=== PATIENT | female | born 1965 | race Caucasian/White ===

== ENCOUNTER 2022-11-13 13:38 | Inpatient (IN) | payer OTHER ==
[2022-11-13] MEDS ORDERED: SODIUM CHLORIDE 0.9% 500 ML INFUS.BAG IV ONE ×2 (15:20→17:19)
[2022-11-13] MEDS ORDERED: ONDANSETRON 4 MG/2 ML VIAL IVPUSH ONE ×3 (15:20→20:22)
[2022-11-13] MEDS ORDERED: PANTOPRAZOLE SODIUM 40 MG VIAL IVPUSH ONE (15:24)
[2022-11-13] MEDS ORDERED: ONDANSETRON 4 MG/2 ML VIAL ONE ×3 (15:27→20:29)
[2022-11-13] MEDS ORDERED: PANTOPRAZOLE SODIUM 40 MG VIAL ONE (15:57)
[2022-11-13 16:21] LABS: BASO % 0.5 % (0-2.0); EOS % 1.2 % (0-4.5); HEMATOCRIT 36.6 % (32.4-45.2); HEMOGLOBIN 12.6 GM/dL (10.7-15.3); LYMPH % 18.3 % (8-40); MCH 31.1 pg (25.7-33.7); MCHC 34.4 g/dl (32.0-36.0); MEAN CELL VOLUME 90.4 fl (80-96); MEAN PLT VOLUME 8.1 fl (7.5-11.1); MONO % 5.2 % (3.8-10.2); NEUT % 74.8 % (42.8-82.8); PLATELET COUNT 289 10^3/uL (134-434); RBC 4.05 M/mm3 (3.60-5.2); RDW 13.4 % (11.6-15.6); WHITE BLOOD COUNT 10.3 K/mm3 (4.0-10.0)
[2022-11-13 16:26] LABS: CHLORIDE 106 mmol/L (98-107); SODIUM 143 mmol/L (136-145)
[2022-11-13 16:27] LABS: CALCIUM 8.6 mg/dL (8.5-10.1)
[2022-11-13 16:28] LABS: ALBUMIN 3.4 g/dl (3.4-5.0); ANION GAP 8 MMOL/L (8-16); BLOOD UREA NITROGEN 10.9 mg/dL (7-18); CO2 29 mmol/L (21-32); GLUCOSE,RANDOM 152 mg/dL (74-106); LIPASE 100 U/L (73-393)
[2022-11-13 16:30] LABS: CREATININE 0.8 mg/dL (0.55-1.3)
[2022-11-13] MEDS ORDERED: POTASSIUM CHLORIDE ORAL LIQUID 20 MEQ/15 ML PO ONE (16:30)
[2022-11-13 16:32] LABS: BILIRUBIN,TOTAL 0.5 mg/dL (0.2-1); SGOT/AST 26 U/L (15-37); SGPT/ALT 28 U/L (13-61); TOT PROT 6.8 g/dl (6.4-8.2)
[2022-11-13 16:33] LABS: ALK PHOS 88 U/L (45-117)
[2022-11-13] MEDS ORDERED: ACETAMINOPHEN 1000 MG/100 ML BAG IVPB ONE (17:14)
[2022-11-13] MEDS ORDERED: ACETAMINOPHEN INJECTION 100 ML IVPB ONE (17:18)
[2022-11-13] MEDS ORDERED: SODIUM CHLORIDE 1,000 ML IV STA (17:19)
[2022-11-13] MEDS ORDERED: KCL 10 MEQ IVPB 10 MEQ/100 ML INFUS.BAG IVPB ONE (17:21)
[2022-11-13] MEDS ORDERED: KCL 10 MEQ IVPB 10 MEQ/100 ML INFUS.BAG IVPB SCH (17:45)
[2022-11-13] MEDS ORDERED: MAG HYDROX/AL HYDROX/SIMETH 30 ML UNIT-DOSE CUP PO ONE (18:37)
[2022-11-13] MEDS ORDERED: MAG HYDROX/AL HYDROX/SIMETH 30 ML UNIT-DOSE CUP ONE (19:13)
[2022-11-13 20:37] LABS: MAGNESIUM < 0.3 mg/dL (1.8-2.4)
[2022-11-13 20:41] LABS: PHOSPHOROUS 2.9 mg/dL (2.5-4.9)
[2022-11-13] MEDS ORDERED: SODIUM CHLORIDE 1,000 ML IV SCH (21:00)
[2022-11-13] MEDS ORDERED: MAGNESIUM SULFATE IN WATER 2 GM/50 ML IVPB IVPB ONE (21:09)
[2022-11-13] MEDS ORDERED: MAGNESIUM SULF 50% (8.12 MEQ/2 ML-1 GM VIAL) IVPB ONE (21:09)
[2022-11-13 23:21] LABS: EPI CELLS >36 /uL (0-25.1); HYALINE CASTS 4 /uL (0-3.1); URINE APPEARANCE CLEAR; URINE BACTERIA 710 /uL (0-1359); URINE BILIRUBIN NEGATIVE (NEGATIVE); URINE COLOR YELLOW; URINE GLUCOSE (UA) NEGATIVE (NEGATIVE); URINE KETONE NEGATIVE (NEGATIVE); URINE LEUK ESTERASE TRACE (NEGATIVE); URINE NITRITE NEGATIVE (NEGATIVE); URINE PROTEIN NEGATIVE (NEGATIVE); URINE RBC 10 /uL (0-23.9); URINE WBC 23 /uL (0-25.8)
[2022-11-13 23:30] LABS: PHENCYCLIDINE,URINE NEGATIVE (NEGATIVE); URINE BENZODIAZEPINES NEGATIVE (NEGATIVE)
[2022-11-13 23:31] LABS: METHADONE, UR NEGATIVE (NEGATIVE); OPIATES, URI NEGATIVE (NEGATIVE)
[2022-11-13 23:40] LABS: COCAINE, UR NEGATIVE (NEGATIVE); URINE AMPHETAMINES NEGATIVE (NEGATIVE); URINE BARBITURATES NEGATIVE (NEGATIVE)
[2022-11-14 01:39] LABS: BASO % 1.2 % (0-2.0); EOS % 2.3 % (0-4.5); LYMPH % 33.6 % (8-40); MCH 31.4 pg (25.7-33.7); MCHC 34.5 g/dl (32.0-36.0); MEAN CELL VOLUME 91.1 fl (80-96); MEAN PLT VOLUME 8.1 fl (7.5-11.1); MONO % 7.2 % (3.8-10.2); NEUT % 55.7 % (42.8-82.8); PLATELET COUNT 256 10^3/uL (134-434); RBC 3.51 M/mm3 (3.60-5.2); RDW 13.6 % (11.6-15.6); WHITE BLOOD COUNT 8.8 K/mm3 (4.0-10.0)
[2022-11-14 07:56] LABS: CHLORIDE 108 mmol/L (98-107); SODIUM 143 mmol/L (136-145)
[2022-11-14 07:57] LABS: BASO % 0.6 % (0-2.0); EOS % 2.6 % (0-4.5); HEMATOCRIT 32.2 % (32.4-45.2); LYMPH % 33.8 % (8-40); MCH 31.4 pg (25.7-33.7); MCHC 34.2 g/dl (32.0-36.0); MEAN CELL VOLUME 91.8 fl (80-96); MEAN PLT VOLUME 8.5 fl (7.5-11.1); MONO % 6.5 % (3.8-10.2); NEUT % 56.5 % (42.8-82.8); PLATELET COUNT 259 10^3/uL (134-434); RBC 3.51 M/mm3 (3.60-5.2); RDW 13.6 % (11.6-15.6); WHITE BLOOD COUNT 7.6 K/mm3 (4.0-10.0)
[2022-11-14 08:00] LABS: ANION GAP 8 MMOL/L (8-16); BLOOD UREA NITROGEN 7.5 mg/dL (7-18); CO2 28 mmol/L (21-32); GLUCOSE,RANDOM 108 mg/dL (74-106)
[2022-11-14 08:01] LABS: CALCIUM 7.4 mg/dL (8.5-10.1)
[2022-11-14 08:03] LABS: CHOLESTEROL 162 mg/dL (50-200); CREATININE 0.7 mg/dL (0.55-1.3); PHOSPHOROUS 2.5 mg/dL (2.5-4.9); SGOT/AST 18 U/L (15-37); SGPT/ALT 23 U/L (13-61)
[2022-11-14 08:04] LABS: BILIRUBIN,TOTAL 0.6 mg/dL (0.2-1); LDL CHOLESTEROL (ONLY SJRH) 99 mg/dL (5-100); TOT PROT 5.8 g/dl (6.4-8.2); TRIGLYCERIDES 169 mg/dL (0-150)
[2022-11-14 08:05] LABS: HDL CHOLESTEROL 38 mg/dL (40-60)
[2022-11-14 08:06] LABS: ALK PHOS 78 U/L (45-117)
[2022-11-14] MEDS ORDERED: LEVOTHYROXINE NA 50 MCG TABLET (FP) ONE (08:21)
[2022-11-14] MEDS ORDERED: LEVOTHYROXINE NA 75 MCG TABLET (FP) ONE (08:21)
[2022-11-14] MEDS: LEVOTHYROXINE 150 MCG, LEVOTHYROXINE 25 MCG PO SCH (08:26)
[2022-11-14 08:45] LABS: MAGNESIUM 0.7 mg/dL (1.8-2.4)
[2022-11-14] MEDS ORDERED: MAGNESIUM SULF 50% (8.12 MEQ/2 ML-1 GM VIAL) IVPB ONE (09:24)
[2022-11-14] MEDS ORDERED: MAGNESIUM SULFATE IN WATER 2 GM/50 ML IVPB IVPB ONE ×3 (09:29→16:25)
[2022-11-14] MEDS ORDERED: metoPROLOL SUCCINATE 25 MG TAB.SR.24H (FP) PO ONE (09:45)
[2022-11-14] MEDS ORDERED: ENOXAPARIN NA (PORCINE) 40 MG/0.4 ML DISP.SYRIN SQ ONE (09:46)
[2022-11-14] MEDS ORDERED: PANTOPRAZOLE SODIUM 40 MG VIAL ONE (09:46)
[2022-11-14] MEDS ORDERED: PANTOPRAZOLE SODIUM 40 MG VIAL IVPUSH SCH (10:00)
[2022-11-14] MEDS ORDERED: LEVOTHYROXINE NA 200 MCG TABLET PO SCH (10:00)
[2022-11-14] MEDS: ENOXAPARIN NA (PORCINE) 40 MG/0.4 ML DISP.SYRIN SQ SCH (10:14)
[2022-11-14] MEDS: metoPROLOL SUCCINATE 25 MG TAB.SR.24H (FP) PO SCH (10:14)
[2022-11-14] MEDS ORDERED: CALCIUM GLUCONATE 10% - 1,000 MG/10 ML VIAL ONE (10:19)
[2022-11-14] MEDS ORDERED: CALCIUM GLUCONATE 10% - 1,000 MG/10 ML VIAL IVPUSH ONE (10:30)
[2022-11-14] MEDS: FAMOTIDINE 20 MG/50 ML IVPB 20 MG/50 ML MG IVPB SCH ×2 (11:04→22:30)
[2022-11-14] MEDS: SODIUM CHLORIDE 0.45% 1,000 ML IV SCH (11:26)
[2022-11-14] MEDS: MAGNESIUM 2GM/50ML STERILE WATER IVPB IVPB SCH ×3 (11:27→17:00)
[2022-11-14] MEDS ORDERED: POTASSIUM CHLORIDE TABS 20 MEQ TABLET.ER (FP) PO ONE ×2 (17:35→18:00)
[2022-11-14] MEDS ORDERED: ACETAMINOPHEN 1000 MG/100 ML BAG IVPB PRN (21:55)
[2022-11-14] MEDS ORDERED: FAMOTIDINE 20 MG/50 ML IVPB 20 MG/50 ML MG IVPB ONE (22:23)
[2022-11-14] MEDS ORDERED: ACETAMINOPHEN 325 MG TABLET (FP) ONE (22:23)
[2022-11-15 07:19] LABS: BASO % 0.5 % (0-2.0); EOS % 2.6 % (0-4.5); HEMATOCRIT 32.2 % (32.4-45.2); HEMOGLOBIN 11.1 GM/dL (10.7-15.3); LYMPH % 27.4 % (8-40); MCH 31.4 pg (25.7-33.7); MCHC 34.3 g/dl (32.0-36.0); MEAN CELL VOLUME 91.7 fl (80-96); MEAN PLT VOLUME 8.3 fl (7.5-11.1); MONO % 6.2 % (3.8-10.2); NEUT % 63.3 % (42.8-82.8); PLATELET COUNT 242 10^3/uL (134-434); RBC 3.51 M/mm3 (3.60-5.2); RDW 13.4 % (11.6-15.6)
[2022-11-15 07:53] LABS: CALCIUM 7.8 mg/dL (8.5-10.1)
[2022-11-15 07:54] LABS: ALBUMIN 3.2 g/dl (3.4-5.0); BLOOD UREA NITROGEN 6.3 mg/dL (7-18); MAGNESIUM 2.3 mg/dL (1.8-2.4)
[2022-11-15 07:57] LABS: CREATININE 0.7 mg/dL (0.55-1.3); PHOSPHOROUS 2.1 mg/dL (2.5-4.9)
[2022-11-15 07:58] LABS: BILIRUBIN,TOTAL 0.6 mg/dL (0.2-1)
[2022-11-15] MEDS ORDERED: metoPROLOL SUCCINATE 25 MG TAB.SR.24H (FP) PO ONE (09:44)
[2022-11-15] MEDS ORDERED: LEVOTHYROXINE NA 75 MCG TABLET (FP) ONE (09:44)
[2022-11-15] MEDS ORDERED: LEVOTHYROXINE NA 50 MCG TABLET (FP) ONE (09:45)
[2022-11-15] MEDS ORDERED: ENOXAPARIN NA (PORCINE) 40 MG/0.4 ML DISP.SYRIN SQ ONE (09:45)
[2022-11-15] MEDS ORDERED: FAMOTIDINE 20 MG/50 ML IVPB 20 MG/50 ML MG IVPB ONE (09:45)
[2022-11-15] MEDS ORDERED: POTASSIUM CHLORIDE TABS 20 MEQ TABLET.ER (FP) PO ONE (11:27)
[2022-11-15] MEDS: LEVOTHYROXINE 150 MCG, LEVOTHYROXINE 25 MCG PO SCH (11:51)
[2022-11-15] MEDS: FAMOTIDINE 20 MG/50 ML IVPB 20 MG/50 ML MG IVPB SCH ×2 (11:51→21:47)
[2022-11-15] MEDS: metoPROLOL SUCCINATE 25 MG TAB.SR.24H (FP) PO SCH (11:51)
[2022-11-15] MEDS: ENOXAPARIN NA (PORCINE) 40 MG/0.4 ML DISP.SYRIN SQ SCH (11:51)
[2022-11-15] MEDS: SODIUM CHLORIDE 0.45% 1,000 ML IV SCH (11:52)
[2022-11-15] MEDS: POTASSIUM CHLORIDE TABS 20 MEQ TABLET.ER (FP) PO SCH (11:52)
[2022-11-15] MEDS: ATORVASTATIN CA 80 MG TABLET (FP) PO SCH (21:46)
[2022-11-15 23:48] VITALS: BMI 38.4
[2022-11-16] MEDS: LEVOTHYROXINE 100 MCG, LEVOTHYROXINE 75 MCG PO SCH (06:15)
[2022-11-16] MEDS: FAMOTIDINE 20 MG/50 ML IVPB 20 MG/50 ML MG IVPB SCH (09:56)
[2022-11-16] MEDS: POTASSIUM CHLORIDE TABS 20 MEQ TABLET.ER (FP) PO SCH (09:57)
[2022-11-16] MEDS: ASPIRIN 81 MG CHEWABLE TABLETS PO SCH (09:57)
[2022-11-16] MEDS: ENOXAPARIN NA (PORCINE) 40 MG/0.4 ML DISP.SYRIN SQ SCH (09:57)
[2022-11-16] MEDS: metoPROLOL SUCCINATE 25 MG TAB.SR.24H (FP) PO SCH (09:58)
[2022-11-16 10:15] LABS: HEMATOCRIT 32.5 % (32.4-45.2); MCH 31.2 pg (25.7-33.7); MCHC 33.9 g/dl (32.0-36.0); MEAN CELL VOLUME 92.2 fl (80-96); MEAN PLT VOLUME 8.2 fl (7.5-11.1); PLATELET COUNT 251 10^3/uL (134-434); RBC 3.53 M/mm3 (3.60-5.2); RDW 13.6 % (11.6-15.6)
[2022-11-16 10:39] LABS: CALCIUM 7.9 mg/dL (8.5-10.1)
[2022-11-16 10:40] LABS: ALBUMIN 3.1 g/dl (3.4-5.0); BLOOD UREA NITROGEN 8.3 mg/dL (7-18)
[2022-11-16 10:43] LABS: CREATININE 0.7 mg/dL (0.55-1.3); PHOSPHOROUS 1.3 mg/dL (2.5-4.9)
[2022-11-16 10:44] LABS: TOT PROT 6.2 g/dl (6.4-8.2)
[2022-11-16 10:46] LABS: BILIRUBIN,TOTAL 0.4 mg/dL (0.2-1)
[2022-11-16] MEDS ORDERED: SODIUM CHLORIDE 0.9% 500 ML INFUS.BAG IV ONE (10:49)
[2022-11-16] MEDS: SODIUM CHLORIDE 0.45% 1,000 ML IV SCH (11:45)
[2022-11-16] MEDS: NAPH,MB-DB/K PH,MBDB POWDER PACKET PO SCH ×2 (13:07→21:10)
[2022-11-16] MEDS ORDERED: NAPH,MB-DB/K PH,MBDB POWDER PACKET PO SCH (14:00)
[2022-11-16] MEDS ORDERED: REGADENOSON 0.4 MG/5 ML PRE-FILLED SYRINGE IVPUSH ONE ×2 (14:16→14:45)
[2022-11-16] MEDS ORDERED: MAG HYDROX/AL HYDROX/SIMETH 30 ML UNIT-DOSE CUP PO PRN (17:36)
[2022-11-16] MEDS ORDERED: ALBUTEROL SO4 HFA INHALER IH PRN ×2 (18:38→18:41)
[2022-11-16] MEDS: AMITRIPTYLINE HCL 75 MG TABLET PO SCH (21:10)
[2022-11-16] MEDS: ATORVASTATIN CA 80 MG TABLET (FP) PO SCH (21:10)
[2022-11-17] MEDS: LEVOTHYROXINE 100 MCG, LEVOTHYROXINE 75 MCG PO SCH (06:42)
[2022-11-17 07:49] LABS: BASO % 0.7 % (0-2.0); EOS % 4.3 % (0-4.5); HEMATOCRIT 34.3 % (32.4-45.2); HEMOGLOBIN 11.8 GM/dL (10.7-15.3); MCH 31.5 pg (25.7-33.7); MCHC 34.5 g/dl (32.0-36.0); MEAN CELL VOLUME 91.3 fl (80-96); MEAN PLT VOLUME 8.3 fl (7.5-11.1); MONO % 7.1 % (3.8-10.2); NEUT % 55.9 % (42.8-82.8); PLATELET COUNT 273 10^3/uL (134-434); RBC 3.76 M/mm3 (3.60-5.2); RDW 13.4 % (11.6-15.6); WHITE BLOOD COUNT 6.7 K/mm3 (4.0-10.0)
[2022-11-17 08:24] LABS: ALBUMIN 3.2 g/dl (3.4-5.0); CALCIUM 8.9 mg/dL (8.5-10.1)
[2022-11-17 08:25] LABS: BLOOD UREA NITROGEN 10.4 mg/dL (7-18); MAGNESIUM 1.7 mg/dL (1.8-2.4)
[2022-11-17 08:26] LABS: CREATININE 0.6 mg/dL (0.55-1.3)
[2022-11-17 08:28] LABS: BILIRUBIN,TOTAL 0.5 mg/dL (0.2-1); TOT PROT 6.5 g/dl (6.4-8.2)
[2022-11-17] MEDS: FAMOTIDINE 20 MG TABLET PO SCH (10:14)
[2022-11-17] MEDS: ASPIRIN 81 MG CHEWABLE TABLETS PO SCH (10:14)
[2022-11-17] MEDS: POTASSIUM CHLORIDE TABS 20 MEQ TABLET.ER (FP) PO SCH (10:15)
[2022-11-17] MEDS: metoPROLOL SUCCINATE 25 MG TAB.SR.24H (FP) PO SCH (10:15)
[2022-11-17] MEDS: ENOXAPARIN NA (PORCINE) 40 MG/0.4 ML DISP.SYRIN SQ SCH (10:16)
[2022-11-17] MEDS: CHOLECALCIFEROL (VIT D3) 1,000 UNIT (25 MCG) TABLET PO SCH (10:18)
[2022-11-17] MEDS ORDERED: MAGNESIUM SULF 50% (8.12 MEQ/2 ML-1 GM VIAL) IVPB ONE ×3 (10:55→13:30)
[2022-11-17] MEDS ORDERED: MAG HYDROX/AL HYDROX/SIMETH 30 ML UNIT-DOSE CUP PO ONE (18:16)
[2022-11-17] MEDS: NAPH,MB-DB/K PH,MBDB POWDER PACKET PO SCH ×3 (19:25→21:16)
[2022-11-17] MEDS ORDERED: SUCRALFATE 1 GM/10 ML UNIT DOSE CUPS PO SCH (20:50)
[2022-11-17] MEDS: ONDANSETRON 4 MG/2 ML VIAL IVPUSH PRN (21:01)
[2022-11-17] MEDS: AMITRIPTYLINE HCL 75 MG TABLET PO SCH (21:15)
[2022-11-17] MEDS: ATORVASTATIN CA 80 MG TABLET (FP) PO SCH (21:15)
[2022-11-17] MEDS ORDERED: SUCRALFATE 1 GM TABLET (FP) PO SCH (22:00)
[2022-11-17] MEDS ORDERED: PROCHLORPERAZINE INJECTION 10 MG/2 ML VIAL IVPB ONE (23:13)
[2022-11-17] MEDS ORDERED: PROCHLORPERAZINE INJECTION 10 MG/2 ML VIAL IM ONE (23:24)
[2022-11-17] MEDS: SUCRALFATE 1 GM TABLET (FP) PO SCH (23:26)
[2022-11-17] MEDS ORDERED: FAMOTIDINE 20 MG/50 ML IVPB 20 MG/50 ML MG IVPB ONE (23:43)
[2022-11-18] MEDS: LEVOTHYROXINE 100 MCG, LEVOTHYROXINE 75 MCG PO SCH (06:16)
[2022-11-18] MEDS: NAPH,MB-DB/K PH,MBDB POWDER PACKET PO SCH ×2 (06:20→16:45)
[2022-11-18 07:30] LABS: HEMATOCRIT 37.2 % (32.4-45.2); HEMOGLOBIN 12.9 GM/dL (10.7-15.3); MCH 31.5 pg (25.7-33.7); MCHC 34.5 g/dl (32.0-36.0); MEAN CELL VOLUME 91.3 fl (80-96); MEAN PLT VOLUME 8.1 fl (7.5-11.1); PLATELET COUNT 314 10^3/uL (134-434); RBC 4.08 M/mm3 (3.60-5.2); RDW 13.8 % (11.6-15.6); WHITE BLOOD COUNT 8.6 K/mm3 (4.0-10.0)
[2022-11-18 07:57] LABS: BLOOD UREA NITROGEN 16.2 mg/dL (7-18); CALCIUM 9.7 mg/dL (8.5-10.1)
[2022-11-18] MEDS ORDERED: SUCRALFATE 1 GM TABLET (FP) PO SCH (08:00)
[2022-11-18 08:01] LABS: CREATININE 0.7 mg/dL (0.55-1.3)
[2022-11-18] MEDS: ASPIRIN 81 MG CHEWABLE TABLETS PO SCH (10:23)
[2022-11-18] MEDS: SUCRALFATE 1 GM TABLET (FP) PO SCH ×4 (10:23→20:22)
[2022-11-18] MEDS: metoPROLOL SUCCINATE 25 MG TAB.SR.24H (FP) PO SCH (10:24)
[2022-11-18] MEDS: ENOXAPARIN NA (PORCINE) 40 MG/0.4 ML DISP.SYRIN SQ SCH (10:24)
[2022-11-18] MEDS: FAMOTIDINE 20 MG TABLET PO SCH (10:24)
[2022-11-18] MEDS: CHOLECALCIFEROL (VIT D3) 1,000 UNIT (25 MCG) TABLET PO SCH (10:25)
[2022-11-18] MEDS: ONDANSETRON 4 MG/2 ML VIAL IVPUSH PRN (10:25)
[2022-11-18] MEDS: POTASSIUM CHLORIDE TABS 20 MEQ TABLET.ER (FP) PO SCH (19:52)
[2022-11-18 20:41] VITALS: BP 136/85; PULSE 82; RESP 18; TEMP 98.1
== END 2022-11-18 20:46 | disposition short-term general hospital (02) | DRG 641 ==
LOC: JER 13:38 → JERBED 17:49 → J4S 11-15 20:47
PROVIDERS: ADMIT Internal Medicine; ATTEND Internal Medicine
DX: E83.42 Hypomagnesemia (principal); E03.9 Hypothyroidism, unspecified; K21.9 Gastro-esophageal reflux disease without esophagitis; E78.5 Hyperlipidemia, unspecified; K44.9 Diaphragmatic hernia without obstruction or gangrene; G89.4 Chronic pain syndrome; D49.7 Neoplasm of unspecified behavior of endocrine glands and other parts of nervous system; R42 Dizziness and giddiness; I95.1 Orthostatic hypotension; D72.829 Elevated white blood cell count, unspecified; E11.65 Type 2 diabetes mellitus with hyperglycemia; I10 Essential (primary) hypertension; R94.39 Abnormal result of other cardiovascular function study; E87.6 Hypokalemia; R11.2 Nausea with vomiting, unspecified; E66.9 Obesity, unspecified; Z68.38 Body mass index [BMI] 38.0-38.9, adult; E83.39 Other disorders of phosphorus metabolism; E87.5 Hyperkalemia; W18.30XA Fall on same level, unspecified, initial encounter; Y92.098 Other place in other non-institutional residence as the place of occurrence of the external cause
CPT/HCPCS: 0241U-QW; 36415; 70450-TC; 71046-TC-FY; 74176-TC; 78452-TC; 80048; 80053; 80061; 80307; 81003; 82550; 82962; 83036; 83690; 83735; 84100; 84443; 84484; 85025; 85027; 87077; 87086; 93005; 93010; 93017; 93306-TC; 93880-TC; 97116-GP; 97161-GP; 99285-25; A9502; J2785

== ENCOUNTER 2023-02-22 04:27 | Day surgery (SDC) | payer OTHER ==
[2023-02-18 14:44] VITALS: BMI 30.2
[2023-02-22] MEDS ORDERED: LIDOCAINE VISCOUS 2% ORAL/TOP 15 ML UNIT-DOSE CUP ONE (08:24)
[2023-02-22 09:28] VITALS: BP 132/80; PULSE 78; RESP 21; TEMP 98.6
== END 2023-02-22 09:28 | disposition home or self-care (01) ==
LOC: JASU-ENDO 04:27
PROVIDERS: ATTEND Student in an Organized Health Care Education/Training Program
PROC: 0DB78ZX Excision of Stomach, Pylorus, Via Natural or Artificial Opening Endoscopic, Diagnostic (ICD-10-PCS; 2023-02-22)
PROC: 0DB68ZX Excision of Stomach, Via Natural or Artificial Opening Endoscopic, Diagnostic (ICD-10-PCS; principal; 2023-02-22 08:30)
DX: K29.50 Unspecified chronic gastritis without bleeding (principal)
CPT/HCPCS: 88305-TC; 88342-TC

== ENCOUNTER 2023-06-28 05:08 | Day surgery (SDC) | payer OTHER ==
[2023-06-27 13:45] VITALS: BMI 30.4
[2023-06-28 14:15] VITALS: TEMP 97.2
[2023-06-28 14:42] VITALS: RESP 22
[2023-06-28 14:50] VITALS: BP 114/73; PULSE 69
== END 2023-06-28 15:00 | disposition home or self-care (01) ==
LOC: JASU-ENDO 05:08
PROVIDERS: ATTEND Student in an Organized Health Care Education/Training Program
PROC: 0DBN8ZX Excision of Sigmoid Colon, Via Natural or Artificial Opening Endoscopic, Diagnostic (ICD-10-PCS; 2023-06-28)
PROC: 0DBH8ZX Excision of Cecum, Via Natural or Artificial Opening Endoscopic, Diagnostic (ICD-10-PCS; principal; 2023-06-28 12:00)
DX: Z12.11 Encounter for screening for malignant neoplasm of colon (principal); D12.0 Benign neoplasm of cecum; K63.5 Polyp of colon; Z86.010 Personal history of colon polyps
CPT/HCPCS: 82962; 88305-TC

== ENCOUNTER 2023-08-25 11:13 | Emergency (ER) | payer OTHER ==
[2023-08-25 11:17] VITALS: BMI 37.0
[2023-08-25] MEDS ORDERED: KETOROLAC TROMETHAMINE 15 MG/ML VIAL IVPUSH ONE (11:35)
[2023-08-25] MEDS ORDERED: SODIUM CHLORIDE 0.9% 500 ML INFUS.BAG IV ONE (11:35)
[2023-08-25] MEDS ORDERED: KETOROLAC TROMETHAMINE 30 MG/1 ML VIAL ONE (12:06)
[2023-08-25 12:30] LABS: BASO % 0.7 % (0-2.0); EOS % 4.3 % (0-4.5); MONO % 8.7 % (3.8-10.2); NEUT % 57.3 % (42.8-82.8)
[2023-08-25 12:43] LABS: HEMOGLOBIN 12.6 GM/dL (10.7-15.3); MCH 31.3 pg (25.7-33.7); MCHC 34.1 g/dl (32.0-36.0); MEAN CELL VOLUME 91.8 fl (80-96); MEAN PLT VOLUME 7.9 fl (7.5-11.1); PLATELET COUNT 270 10^3/uL (134-434); RBC 4.02 M/mm3 (3.60-5.2); RDW 13.8 % (11.6-15.6); WHITE BLOOD COUNT 6.6 K/mm3 (4.0-10.0)
[2023-08-25 13:18] LABS: POTASSIUM 3.8 mmol/L (3.5-5.1)
[2023-08-25 13:20] LABS: CALCIUM 9.1 mg/dL (8.5-10.1)
[2023-08-25 13:21] LABS: ALBUMIN 3.4 g/dl (3.4-5.0); MAGNESIUM 1.6 mg/dL (1.8-2.4)
[2023-08-25 13:24] LABS: CREATININE 0.8 mg/dL (0.55-1.3)
[2023-08-25 13:26] LABS: BILIRUBIN,TOTAL 0.4 mg/dL (0.2-1); TOT PROT 6.8 g/dl (6.4-8.2)
[2023-08-25 13:51] LABS: EPI CELLS >36 /uL (0-25.1); HYALINE CASTS 6 /uL (0-3.1); PH,URINE 5.5 (5.0-8.0); URINE APPEARANCE CLOUDY; URINE BACTERIA 598 /uL (0-1359); URINE BILIRUBIN 1+ (NEGATIVE); URINE COLOR DK YELLOW; URINE GLUCOSE (UA) 1+ (NEGATIVE); URINE KETONE TRACE (NEGATIVE); URINE LEUK ESTERASE 1+ (NEGATIVE); URINE NITRITE NEGATIVE (NEGATIVE); URINE PROTEIN TRACE (NEGATIVE); URINE RBC 16 /uL (0-23.9); URINE WBC 55 /uL (0-25.8)
[2023-08-25] MEDS ORDERED: CEFTRIAXONE 1,000 MG in DEXTROSE 5%-WATER - 50 ML IVPB ONE (14:30)
[2023-08-25] MEDS ORDERED: CEFTRIAXONE 1 GM/50 ML BAG ONE (14:40)
[2023-08-25 16:48] VITALS: BP 110/66; PULSE 68; RESP 19; TEMP 97.9
== END 2023-08-25 16:45 | disposition home or self-care (01) ==
LOC: JER 11:13
PROC: 3E03329 Introduction of Other Anti-infective into Peripheral Vein, Percutaneous Approach (ICD-10-PCS; principal; 2023-08-25)
PROC: 3E0333Z Introduction of Anti-inflammatory into Peripheral Vein, Percutaneous Approach (ICD-10-PCS; 2023-08-25)
DX: R10.9 Unspecified abdominal pain (principal); R30.0 Dysuria; R68.83 Chills (without fever); N12 Tubulo-interstitial nephritis, not specified as acute or chronic
CPT/HCPCS: 36415; 71046-TC-FY; 74177-TC; 80053; 81003; 83735; 85025; 87086; 96365; 96375; 99285-25; Q9967

== ENCOUNTER 2024-03-21 20:23 | Observation (INO) | payer OTHER ==
[2024-03-21] MEDS ORDERED: ONDANSETRON 4 MG/2 ML VIAL ONE ×2 (21:56→23:38)
[2024-03-21] MEDS ORDERED: MAG HYDROX/AL HYDROX/SIMETH 30 ML UNIT-DOSE CUP ONE (21:56)
[2024-03-21] MEDS ORDERED: FAMOTIDINE 20 MG/50 ML IVPB 20 MG/50 ML MG IVPB ONE (21:56)
[2024-03-21] MEDS ORDERED: ACETAMINOPHEN INJECTION 100 ML IVPB ONE (21:56)
[2024-03-21 21:58] LABS: BASO % 0.5 % (0-2.0); EOS % 1.3 % (0-4.5); HEMATOCRIT 35.9 % (32.4-45.2); HEMOGLOBIN 12.1 GM/dL (10.7-15.3); LYMPH % 12.7 % (8-40); MCH 29.8 pg (25.7-33.7); MCHC 33.7 g/dl (32.0-36.0); MEAN CELL VOLUME 88.4 fl (80-96); MONO % 5.9 % (3.8-10.2); NEUT % 79.6 % (42.8-82.8); PLATELET COUNT 313 10^3/uL (134-434); RBC 4.06 M/mm3 (3.60-5.2); RDW 14.9 % (11.6-15.6); WHITE BLOOD COUNT 10.6 K/mm3 (4.0-10.0)
[2024-03-21] MEDS: ONDANSETRON 4 MG/2 ML VIAL IVPUSH ONE ×2 (22:00→23:43)
[2024-03-21] MEDS: ACETAMINOPHEN 1000 MG/100 ML BAG IVPB ONE (22:00)
[2024-03-21] MEDS: LACTATED RINGERS SOLUTION 1000 ML INFUS.BAG IV ONE (22:00)
[2024-03-21] MEDS: FAMOTIDINE 20 MG/50 ML IVPB 20 MG/50 ML MG IVPB ONE (22:00)
[2024-03-21] MEDS: MAG HYDROX/AL HYDROX/SIMETH -MYLANTA- ORAL SUSPENSION PO ONE (22:00)
[2024-03-21 22:05] LABS: INR 1.1 (0.83-1.09); PROTHROMBIN TIME (PATIENT) 12.4 SEC (9.7-13.0)
[2024-03-21 23:02] LABS: CHLORIDE 101 mmol/L (98-107); POTASSIUM 3.7 mmol/L (3.5-5.1); SODIUM 135 mmol/L (136-145)
[2024-03-21 23:04] LABS: CALCIUM 9.2 mg/dL (8.5-10.1)
[2024-03-21 23:05] LABS: ALBUMIN 3.3 g/dl (3.4-5.0); ANION GAP 8 mmol/L (4-13); BLOOD UREA NITROGEN 16.6 mg/dL (7-18); CO2 26 mmol/L (21-32); GLUCOSE,RANDOM 313 mg/dL (74-106)
[2024-03-21 23:08] LABS: CREATININE 0.9 mg/dL (0.55-1.3); SGOT/AST 100 U/L (15-37); SGPT/ALT 79 U/L (13-61)
[2024-03-21 23:09] LABS: TOT PROT 6.3 g/dl (6.4-8.2)
[2024-03-21 23:10] LABS: BILIRUBIN,TOTAL 0.4 mg/dL (0.2-1)
[2024-03-21 23:11] LABS: ALK PHOS 128 U/L (45-117)
[2024-03-21 23:28] LABS: MAGNESIUM 0.9 mg/dL (1.8-2.4)
[2024-03-21] MEDS ORDERED: SUCRALFATE 1 GM TABLET (FP) ONE (23:37)
[2024-03-21] MEDS ORDERED: PANTOPRAZOLE SODIUM 40 MG VIAL ONE (23:38)
[2024-03-21] MEDS: PANTOPRAZOLE SODIUM 40 MG VIAL IVPUSH ONE (23:43)
[2024-03-21] MEDS: SUCRALFATE 1 GM TABLET (FP) PO ONE (23:43)
[2024-03-21] MEDS: MAGNESIUM SULF 50% (8.12 MEQ/2 ML-1 GM VIAL) IVPB ONE (23:52)
[2024-03-22] LABS: URINE APPEARANCE CLOUDY; URINE BILIRUBIN NEGATIVE (NEGATIVE); URINE COLOR YELLOW; URINE GLUCOSE (UA) 3+ (NEGATIVE); URINE KETONE TRACE (NEGATIVE); URINE LEUK ESTERASE NEGATIVE (NEGATIVE); URINE NITRITE NEGATIVE (NEGATIVE); URINE PROTEIN TRACE (NEGATIVE); URINE UROBILINOGEN 0.2 mg/dL (0.2-1.0)
[2024-03-22] MEDS ORDERED: METOCLOPRAMIDE HCL INJECTION 10 MG/2 ML VIAL ONE (00:21)
[2024-03-22] MEDS: METOCLOPRAMIDE HCL INJECTION 10 MG/2 ML VIAL IVPUSH ONE (00:25)
[2024-03-22] MEDS ORDERED: METOCLOPRAMIDE HCL INJECTION 10 MG/2 ML VIAL IVPUSH PRN (03:05)
[2024-03-22] MEDS ORDERED: PATIENT'S OWN MEDICATION (NON-FORMULARY) (Plecanatide [Trulance] 3 MG Tablet) PO PRN (03:14)
[2024-03-22] MEDS ORDERED: MAGNESIUM SULFATE IN WATER 2 GM/50 ML IVPB IVPB ONE (03:27)
[2024-03-22] MEDS: MAGNESIUM SULF 50% (8.12 MEQ/2 ML-1 GM VIAL) IVPB ONE (03:30)
[2024-03-22 04:57] VITALS: BMI 41.4
[2024-03-22] MEDS: CEFTRIAXONE 1 GM in DEXTROSE 5%-WATER - 50 ML IVPB SCH (05:07)
[2024-03-22] MEDS: LEVOTHYROXINE 100 MCG, LEVOTHYROXINE 75 MCG PO SCH (06:03)
[2024-03-22] MEDS: INSULIN ASPART SLIDING SCALE (NOVOLOG) 1 VIAL SQ SCH (06:03)
[2024-03-22 06:59] LABS: HEMATOCRIT 33.1 % (32.4-45.2); HEMOGLOBIN 11.1 GM/dL (10.7-15.3); MCH 29.4 pg (25.7-33.7); MCHC 33.4 g/dl (32.0-36.0); MEAN PLT VOLUME 8.5 fl (7.5-11.1); PLATELET COUNT 280 10^3/uL (134-434); RBC 3.76 M/mm3 (3.60-5.2); RDW 14.3 % (11.6-15.6); WHITE BLOOD COUNT 7.2 K/mm3 (4.0-10.0)
[2024-03-22 07:19] LABS: POTASSIUM 3.7 mmol/L (3.5-5.1)
[2024-03-22 07:29] LABS: ALBUMIN 2.9 g/dl (3.4-5.0); BLOOD UREA NITROGEN 14.7 mg/dL (7-18); CALCIUM 8.8 mg/dL (8.5-10.1); PHOSPHOROUS 2.6 mg/dL (2.5-4.9)
[2024-03-22 07:30] LABS: MAGNESIUM 1.7 mg/dL (1.8-2.4)
[2024-03-22 07:31] LABS: BILIRUBIN,TOTAL 0.5 mg/dL (0.2-1); TOT PROT 5.8 g/dl (6.4-8.2)
[2024-03-22 07:32] LABS: CREATININE 0.6 mg/dL (0.55-1.3)
[2024-03-22 08:23] LABS: METHADONE, UR NEGATIVE (NEGATIVE); OPIATES, URI NEGATIVE (NEGATIVE); PHENCYCLIDINE,URINE NEGATIVE (NEGATIVE); URINE BARBITURATES NEGATIVE (NEGATIVE); URINE BENZODIAZEPINES NEGATIVE (NEGATIVE)
[2024-03-22 08:24] LABS: URINE AMPHETAMINES NEGATIVE (NEGATIVE)
[2024-03-22 08:25] LABS: COCAINE, UR NEGATIVE (NEGATIVE)
[2024-03-22] MEDS ORDERED: PATIENT'S OWN MEDICATION (NON-FORMULARY) (Estrogen,Con/M-Progest Acet [Prempro 0.45-1.5 Mg PO SCH (10:00)
[2024-03-22] MEDS ORDERED: LEVOTHYROXINE NA 150 MCG TABLET PO SCH (10:00)
[2024-03-22] MEDS: CHOLECALCIFEROL (VIT D3) 1,000 UNIT (25 MCG) TABLET PO SCH (10:34)
[2024-03-22] MEDS: ASCORBIC ACID 500 MG TABLET (FP) PO SCH (10:34)
[2024-03-22] MEDS: ENOXAPARIN NA (PORCINE) 40 MG/0.4 ML DISP.SYRIN SQ SCH (10:35)
[2024-03-22] MEDS: PANTOPRAZOLE SODIUM 40 MG VIAL IVPUSH SCH (10:36)
[2024-03-22] MEDS: metoPROLOL SUCCINATE 25 MG TAB.SR.24H (FP) PO SCH (10:37)
[2024-03-22] MEDS: VITAMIN B COMPLEX W/C COMBO TABLET (FP) PO SCH (10:37)
[2024-03-22 11:13] VITALS: RESP 20
[2024-03-22] MEDS: MAGNESIUM 1GM/D5W - 1 GM/100 ML IVPB IVPB ONE (12:05)
[2024-03-22 15:38] VITALS: BP 119/60; PULSE 66; TEMP 98.1
[2024-03-22] MEDS ORDERED: ATORVASTATIN CA 80 MG TABLET (FP) PO SCH (22:00)
[2024-03-22] MEDS ORDERED: INSULIN (LEVEMIR) 100 UNITS/ML UNITS SQ SCH (22:00)
[2024-03-22] MEDS ORDERED: AMITRIPTYLINE HCL 75 MG TABLET PO SCH (22:00)
[2024-03-23] MEDS ORDERED: GLIMEPIRIDE 2 MG TABLET PO SCH (07:00)
== END 2024-03-22 16:33 | disposition home or self-care (01) ==
LOC: JER 20:23 → JERBED 03-22 01:22 → J4S 03-22 04:27
PROVIDERS: ADMIT Internal Medicine; ATTEND Internal Medicine
PROC: 3E033NZ Introduction of Analgesics, Hypnotics, Sedatives into Peripheral Vein, Percutaneous Approach (ICD-10-PCS; principal; 2024-03-22)
PROC: 3E03329 Introduction of Other Anti-infective into Peripheral Vein, Percutaneous Approach (ICD-10-PCS; 2024-03-22)
PROC: 3E013VG Introduction of Insulin into Subcutaneous Tissue, Percutaneous Approach (ICD-10-PCS; 2024-03-22)
PROC: 3E0337Z Introduction of Electrolytic and Water Balance Substance into Peripheral Vein, Percutaneous Approach (ICD-10-PCS; 2024-03-22)
PROC: 3E033GC Introduction of Other Therapeutic Substance into Peripheral Vein, Percutaneous Approach (ICD-10-PCS; 2024-03-22)
DX: K29.70 Gastritis, unspecified, without bleeding (principal); E11.9 Type 2 diabetes mellitus without complications; E83.42 Hypomagnesemia; E78.5 Hyperlipidemia, unspecified; R74.01 Elevation of levels of liver transaminase levels; I48.91 Unspecified atrial fibrillation; K21.9 Gastro-esophageal reflux disease without esophagitis; K44.9 Diaphragmatic hernia without obstruction or gangrene; R10.13 Epigastric pain; E03.9 Hypothyroidism, unspecified; Z87.891 Personal history of nicotine dependence
CPT/HCPCS: 0241U-QW; 36415; 71045-TC-FY; 76705-TC; 80053; 80061; 80307; 81003; 82962; 83036; 83690; 83735; 84100; 84443; 84484; 85025; 85027; 85610; 85730; 86704; 86708; 86803; 87086; 87340; 87517; 93005; 93010; 96361; 96365; 96367; 96368; 96372; 96375; 96376; 99291; G0378; J0131

== ENCOUNTER 2024-05-26 22:11 | Observation (INO) | payer OTHER ==
[2024-05-26] MEDS ORDERED: ONDANSETRON 4 MG/2 ML VIAL ONE (22:35)
[2024-05-26] MEDS: ONDANSETRON 4 MG/2 ML VIAL IVPUSH ONE (22:45)
[2024-05-26] MEDS ORDERED: FAMOTIDINE 20 MG/50 ML IVPB 20 MG/50 ML MG IVPB ONE (22:46)
[2024-05-26] MEDS ORDERED: ACETAMINOPHEN INJECTION 100 ML IVPB ONE (22:46)
[2024-05-26 22:49] LABS: EOS % 1.6 % (0-4.5); HEMATOCRIT 33.7 % (32.4-45.2); HEMOGLOBIN 11.5 GM/dL (10.7-15.3); LYMPH % 23.5 % (8-40); MCH 29.7 pg (25.7-33.7); MCHC 34.2 g/dl (32.0-36.0); MEAN CELL VOLUME 86.8 fl (80-96); MEAN PLT VOLUME 8.1 fl (7.5-11.1); MONO % 5.5 % (3.8-10.2); NEUT % 68.4 % (42.8-82.8); PLATELET COUNT 246 10^3/uL (134-434); RBC 3.89 M/mm3 (3.60-5.2)
[2024-05-26] MEDS: FAMOTIDINE 20 MG/50 ML IVPB 20 MG/50 ML MG IVPB ONE (22:54)
[2024-05-26 22:56] LABS: INR 1.32 (0.83-1.09); PROTHROMBIN TIME (PATIENT) 14.8 SEC (9.7-13.0)
[2024-05-26 22:59] LABS: ACTIVATED PTT 29.1 SECONDS (25.2-36.5)
[2024-05-26] MEDS: ACETAMINOPHEN 1000 MG/100 ML BAG IVPB ONE (23:07)
[2024-05-26] MEDS ORDERED: MAG HYDROX/AL HYDROX/SIMETH 30 ML UNIT-DOSE CUP ONE (23:13)
[2024-05-26] MEDS: MAG HYDROX/AL HYDROX/SIMETH 30 ML UNIT-DOSE CUP PO ONE (23:15)
[2024-05-26 23:25] LABS: CHLORIDE 104 mmol/L (98-107); SODIUM 141 mmol/L (136-145)
[2024-05-26 23:28] LABS: ALBUMIN 3.4 g/dl (3.4-5.0); BLOOD UREA NITROGEN 10.1 mg/dL (7-18); CO2 27 mmol/L (21-32); GLUCOSE,RANDOM 142 mg/dL (74-106)
[2024-05-26 23:30] LABS: SGPT/ALT 31 U/L (13-61)
[2024-05-26 23:31] LABS: CREATININE 0.6 mg/dL (0.55-1.3); SGOT/AST 42 U/L (15-37)
[2024-05-26 23:32] LABS: BILIRUBIN,TOTAL 0.6 mg/dL (0.2-1); TOT PROT 6.6 g/dl (6.4-8.2)
[2024-05-26 23:33] LABS: ALK PHOS 96 U/L (45-117)
[2024-05-26 23:43] LABS: ANION GAP 10 mmol/L (4-13); POTASSIUM 2.9 mmol/L (3.5-5.1)
[2024-05-26] MEDS ORDERED: POTASSIUM CHLORIDE ORAL LIQUID 20 MEQ/15 ML ONE (23:58)
[2024-05-26] MEDS ORDERED: KCL 10 MEQ IVPB 10 MEQ/100 ML INFUS.BAG IVPB ONE (23:59)
[2024-05-27] MEDS: POTASSIUM CHLORIDE TABS 20 MEQ TABLET.ER (FP) PO ONE ×2 (00:06→05:50)
[2024-05-27] MEDS ORDERED: METOCLOPRAMIDE HCL INJECTION 10 MG/2 ML VIAL ONE (00:09)
[2024-05-27] MEDS: KCL 10 MEQ IVPB 10 MEQ/100 ML INFUS.BAG IVPB SCH ×2 (00:09→05:50)
[2024-05-27] MEDS: METOCLOPRAMIDE HCL INJECTION 10 MG/2 ML VIAL IVPB ONE (00:11)
[2024-05-27] MEDS ORDERED: KCL 10 MEQ IVPB 10 MEQ/100 ML INFUS.BAG IVPB ONE ×2 (00:58→05:46)
[2024-05-27] MEDS ORDERED: CEFTRIAXONE 1 GM/50 ML BAG ONE (02:39)
[2024-05-27] MEDS: CEFTRIAXONE 1 GM in DEXTROSE 5%-WATER - 50 ML IVPB ONE (02:42)
[2024-05-27] MEDS ORDERED: AZITHROMYCIN IVPB 500 MG/250 ML BAG IVPB ONE (03:05)
[2024-05-27] MEDS: AZITHROMYCIN IVPB 500 MG in DEXTROSE 5%-WATER - 250 ML IVPB ONE (03:10)
[2024-05-27 06:51] LABS: URINE APPEARANCE CLEAR; URINE BILIRUBIN NEGATIVE (NEGATIVE); URINE COLOR YELLOW; URINE GLUCOSE (UA) NEGATIVE (NEGATIVE); URINE KETONE NEGATIVE (NEGATIVE); URINE LEUK ESTERASE NEGATIVE (NEGATIVE); URINE NITRITE NEGATIVE (NEGATIVE); URINE PROTEIN NEGATIVE (NEGATIVE); URINE UROBILINOGEN 0.2 mg/dL (0.2-1.0)
[2024-05-27 07:40] LABS: HEMATOCRIT 33.7 % (32.4-45.2); HEMOGLOBIN 11.6 GM/dL (10.7-15.3); MCH 29.6 pg (25.7-33.7); MCHC 34.3 g/dl (32.0-36.0); MEAN CELL VOLUME 86.4 fl (80-96); PLATELET COUNT 270 10^3/uL (134-434); RBC 3.91 M/mm3 (3.60-5.2); RDW 15.2 % (11.6-15.6); WHITE BLOOD COUNT 9.4 K/mm3 (4.0-10.0)
[2024-05-27] MEDS ORDERED: ALBUTEROL SO4 HFA INHALER IH PRN (07:44)
[2024-05-27 08:05] LABS: CHLORIDE 106 mmol/L (98-107); POTASSIUM 3.9 mmol/L (3.5-5.1); SODIUM 141 mmol/L (136-145)
[2024-05-27 08:10] LABS: ANION GAP 9 mmol/L (4-13); CO2 26 mmol/L (21-32)
[2024-05-27 08:12] LABS: BLOOD UREA NITROGEN 9.5 mg/dL (7-18); CALCIUM 7.3 mg/dL (8.5-10.1); CREATININE 0.8 mg/dL (0.55-1.3); MAGNESIUM < 0.3 mg/dL (1.8-2.4)
[2024-05-27 08:16] LABS: GLUCOSE,RANDOM 107 mg/dL (74-106)
[2024-05-27 08:18] LABS: PHOSPHOROUS 3.5 mg/dL (2.5-4.9)
[2024-05-27] MEDS ORDERED: ONDANSETRON 4 MG/2 ML VIAL ONE ×2 (08:42→15:05)
[2024-05-27] MEDS ORDERED: MAGNESIUM SULFATE IN WATER 2 GM/50 ML IVPB IVPB ONE ×3 (08:42→17:48)
[2024-05-27] MEDS ORDERED: LEVOTHYROXINE NA 75 MCG TABLET (FP) ONE (08:43)
[2024-05-27] MEDS ORDERED: LEVOTHYROXINE NA 100 MCG TABLET (FP) ONE (08:43)
[2024-05-27] MEDS: ONDANSETRON 4 MG/2 ML VIAL IVPUSH PRN (08:50)
[2024-05-27] MEDS: LEVOTHYROXINE 100 MCG, LEVOTHYROXINE 75 MCG PO SCH (08:50)
[2024-05-27] MEDS: MAGNESIUM SULF 50% (8.12 MEQ/2 ML-1 GM VIAL) IVPB SCH (08:54)
[2024-05-27] MEDS ORDERED: LEVOTHYROXINE NA 150 MCG TABLET PO SCH (10:00)
[2024-05-27] MEDS: PANTOPRAZOLE SODIUM 40 MG VIAL IVPUSH SCH (11:45)
[2024-05-27] MEDS: ENOXAPARIN NA (PORCINE) 40 MG/0.4 ML DISP.SYRIN SQ SCH (11:45)
[2024-05-27] MEDS: metoPROLOL SUCCINATE 25 MG TAB.SR.24H (FP) PO SCH (11:50)
[2024-05-27] MEDS: LEVOTHYROXINE NA 150 MCG TABLET PO ONE (16:28)
[2024-05-27] MEDS: CALCIUM 500MG/VIT-D 200 UNITS COMBO TABLET (FP) PO SCH (16:28)
[2024-05-27] MEDS ORDERED: MAGNESIUM SULF 50% (8.12 MEQ/2 ML-1 GM VIAL) IVPB ONE (17:14)
[2024-05-27] MEDS: MAGNESIUM 2GM/50ML STERILE WATER IVPB IVPB ONE (17:54)
[2024-05-27] MEDS: ATORVASTATIN CA 40 MG TABLET (FP) PO SCH (22:48)
[2024-05-27] MEDS: AMITRIPTYLINE HCL 75 MG TABLET PO SCH (22:52)
[2024-05-28 01:47] VITALS: BMI 32.5
[2024-05-28] MEDS ORDERED: LEVOTHYROXINE NA 75 MCG TABLET (FP) ONE (06:06)
[2024-05-28] MEDS ORDERED: LEVOTHYROXINE NA 150 MCG TABLET PO SCH (07:00)
[2024-05-28] MEDS ORDERED: LEVOTHYROXINE 100 MCG, LEVOTHYROXINE 75 MCG PO SCH (07:00)
[2024-05-28 08:17] LABS: HEMATOCRIT 32.6 % (32.4-45.2); MCH 29.6 pg (25.7-33.7); MCHC 33.7 g/dl (32.0-36.0); MEAN CELL VOLUME 87.9 fl (80-96); MEAN PLT VOLUME 8.4 fl (7.5-11.1); PLATELET COUNT 235 10^3/uL (134-434); RBC 3.71 M/mm3 (3.60-5.2); RDW 15.5 % (11.6-15.6); WHITE BLOOD COUNT 7.5 K/mm3 (4.0-10.0)
[2024-05-28 08:38] LABS: POTASSIUM 4.1 mmol/L (3.5-5.1)
[2024-05-28 08:39] LABS: CALCIUM 8.7 mg/dL (8.5-10.1)
[2024-05-28 08:40] LABS: MAGNESIUM 1.8 mg/dL (1.8-2.4)
[2024-05-28 08:43] LABS: CREATININE 0.7 mg/dL (0.55-1.3)
[2024-05-28] MEDS: METOCLOPRAMIDE HCL 10 MG TABLET (FP) PO SCH (14:33)
[2024-05-29 06:13] VITALS: RESP 18
[2024-05-29 12:37] LABS: HEMATOCRIT 33.8 % (32.4-45.2); HEMOGLOBIN 11.3 GM/dL (10.7-15.3); MCH 29.4 pg (25.7-33.7); MCHC 33.3 g/dl (32.0-36.0); MEAN CELL VOLUME 88.1 fl (80-96); MEAN PLT VOLUME 8.7 fl (7.5-11.1); PLATELET COUNT 286 10^3/uL (134-434); RBC 3.83 M/mm3 (3.60-5.2); WHITE BLOOD COUNT 8.5 K/mm3 (4.0-10.0)
[2024-05-29 13:02] LABS: CHLORIDE 107 mmol/L (98-107); POTASSIUM 4.3 mmol/L (3.5-5.1); SODIUM 142 mmol/L (136-145)
[2024-05-29 13:11] LABS: BILIRUBIN,TOTAL 0.4 mg/dL (0.2-1)
[2024-05-29 13:15] LABS: ALK PHOS 137 U/L (45-117)
[2024-05-29 13:16] LABS: ALBUMIN 3.3 g/dl (3.4-5.0)
[2024-05-29 13:18] LABS: BLOOD UREA NITROGEN 11.3 mg/dL (7-18)
[2024-05-29 13:20] LABS: CALCIUM 8.7 mg/dL (8.5-10.1)
[2024-05-29 13:21] LABS: ANION GAP 7 mmol/L (4-13); CO2 28 mmol/L (21-32); GLUCOSE,RANDOM 213 mg/dL (74-106); MAGNESIUM 1.4 mg/dL (1.8-2.4); SGPT/ALT 28 U/L (13-61)
[2024-05-29 13:23] LABS: CREATININE 0.7 mg/dL (0.55-1.3)
[2024-05-29 13:24] LABS: SGOT/AST 34 U/L (15-37); TOT PROT 6.6 g/dl (6.4-8.2)
[2024-05-29 13:49] LABS: PHOSPHOROUS 0.8 mg/dL (2.5-4.9)
[2024-05-29] MEDS: LACTATED RINGERS SOLUTION 1,000 ML/1,000 ML INFUS.BAG IV STA (14:28)
[2024-05-29] MEDS: LACTATED RINGERS SOLUTION 1,000 ML/1,000 ML INFUS.BAG IV SCH (18:07)
[2024-05-30] MEDS: LEVOTHYROXINE NA 100 MCG TABLET (FP) PO SCH (06:01)
[2024-05-30] MEDS: PANTOPRAZOLE 40 MG TABLET PO SCH (09:06)
[2024-05-30 09:17] LABS: HEMATOCRIT 33.3 % (32.4-45.2); HEMOGLOBIN 11.1 GM/dL (10.7-15.3); MCH 29.3 pg (25.7-33.7); MCHC 33.3 g/dl (32.0-36.0); MEAN CELL VOLUME 87.9 fl (80-96); MEAN PLT VOLUME 8.7 fl (7.5-11.1); PLATELET COUNT 264 10^3/uL (134-434); RBC 3.79 M/mm3 (3.60-5.2); RDW 15.3 % (11.6-15.6); WHITE BLOOD COUNT 7.7 K/mm3 (4.0-10.0)
[2024-05-30 10:05] LABS: POTASSIUM 4.1 mmol/L (3.5-5.1)
[2024-05-30 10:14] LABS: CALCIUM 8.9 mg/dL (8.5-10.1)
[2024-05-30 10:15] LABS: BLOOD UREA NITROGEN 8.4 mg/dL (7-18); MAGNESIUM 1.2 mg/dL (1.8-2.4)
[2024-05-30 10:18] LABS: CREATININE 0.7 mg/dL (0.55-1.3); PHOSPHOROUS 1.8 mg/dL (2.5-4.9)
[2024-05-30 14:01] VITALS: BP 126/53; PULSE 76; TEMP 99.1
== END 2024-05-30 16:18 | disposition home or self-care (01) ==
LOC: JER 22:11 → JERBED 05-27 01:12 → J4S 05-27 22:29
PROVIDERS: ADMIT Internal Medicine; ATTEND Internal Medicine
PROC: 3E03329 Introduction of Other Anti-infective into Peripheral Vein, Percutaneous Approach (ICD-10-PCS; principal; 2024-05-27)
PROC: 3E033NZ Introduction of Analgesics, Hypnotics, Sedatives into Peripheral Vein, Percutaneous Approach (ICD-10-PCS; 2024-05-27)
PROC: 3E0337Z Introduction of Electrolytic and Water Balance Substance into Peripheral Vein, Percutaneous Approach (ICD-10-PCS; 2024-05-27)
PROC: 3E033GC Introduction of Other Therapeutic Substance into Peripheral Vein, Percutaneous Approach (ICD-10-PCS; 2024-05-27)
DX: K29.70 Gastritis, unspecified, without bleeding (principal); I95.1 Orthostatic hypotension; J96.01 Acute respiratory failure with hypoxia; R10.13 Epigastric pain; K44.9 Diaphragmatic hernia without obstruction or gangrene; R94.6 Abnormal results of thyroid function studies; R91.1 Solitary pulmonary nodule; E87.6 Hypokalemia; K21.9 Gastro-esophageal reflux disease without esophagitis; E03.9 Hypothyroidism, unspecified; E11.9 Type 2 diabetes mellitus without complications; E78.5 Hyperlipidemia, unspecified
CPT/HCPCS: 0241U-QW; 36415; 70450-TC; 71045-TC-FY; 71260-TC; 74176-TC; 80048; 80053; 81003; 82607; 82962; 83036; 83690; 83735; 84100; 84439; 84443; 84484; 85025; 85027; 85610; 85730; 93005; 93010; 96361; 96365; 96367; 96368; 96375; 96376; 97116-GP; 97161-GP; 99285-25; G0378; J0131; Q9967